=== PATIENT | female | born 1965 | race Caucasian/White ===

== ENCOUNTER 2016-05-11 22:33 | Emergency (ER) | payer BC ==
[~2016-05-11 22:33] MED LIST: KLONOPIN0.5 M1 PO
[2016-05-12 00:17] LABS: BASO % 0.7 % (0-2); BASO ABSOLUTE COUNT 0.1 tho/cmm (0.0-0.2); EOS % 5.7 % (0-7); EOSINOPHIL ABSOLUTE COUNT 0.5 tho/cmm (0.0-0.7); HCT-HEMATOCRIT 41.7 % (34.0-49.0); HGB-HEMOGLOBIN 13.9 gm/dl (12.0-15.5); IMMATURE GRANULOCYTES ABSOLUTE 0.03 tho/cmm (0-0.03); IMMATURE GRANULOCYTES PERCENT 0.3 % (0-0.3); LYMPH % 30.6 % (20-45); LYMPH ABSOLUTE COUNT 2.8 tho/cmm (0.8-4.5); MCH (MEAN CORPUSCULAR HGB) 29.7 pg (28.0-32.0); MCHC MEAN CORPUSCULAR HGB CONC 33.3 % (32.0-36.0); MCV (MEAN CELL VOLUME) 89.1 fl (82.0-96.0); MONO % 10.8 % (0-12); NEUTROPHIL ABSOLUTE COUNT 4.7 tho/cmm (1.6-8.0); NEUTROPHIL-AUTOMATED 4.7 tho/cmm (1.6-8.0); NEUTROPHILS % 51.9 % (40-80); PLATELET COUNT 241 tho/cmm (150-450); RED BLOOD COUNT 4.68 mil/cmm (4.00-5.20); RED CELL DISTRIBUTION WIDTH 12.7 % (12.4-16.4)
[2016-05-12 00:22] LABS: INR 0.9 INR (0.9-1.1); PROTHROMBIN TIME 10.9 SECONDS (9.0-13.6)
[2016-05-12 00:36] LABS: PREGNANCY-SERUM NEGATIVE (NEGATIVE)
[2016-05-12 00:40] LABS: ESR-ERYTHROCYTE SED RATE 1 mm/hr (0-20)
[2016-05-12 00:47] LABS: BLOOD UREA NITROGEN 17 mg/dl (6-24); CALCIUM 9.2 mg/dl (8.5-10.5); CARBON DIOXIDE-VENOUS 27 mmol/L (22-32); CHLORIDE 107 mmol/l (96-110); GLUCOSE 103 mg/dL (70-110); SODIUM 140 mmol/L (135-145); eGFR VALUE FOR BLACK >90 mL/Min
[2016-05-12 00:48] LABS: ANION GAP 10 mmol/L (0-20); C-REACTIVE PROTEIN <0.3 mg/dl (0-0.9); MAGNESIUM 2.4 mg/dl (1.3-2.6); POTASSIUM 4.2 mmol/L (3.7-5.1)
[2016-05-12 00:51] LABS: TSH-THYROID STIMULATING HORM. 2.58 uIU/ml (0.40-3.80)
[2016-05-12 01:53] LABS: URINE BILIRUBIN NEGATIVE (NEG); URINE BLOOD MODERATE (NEG); URINE GLUCOSE (UA) NEGATIVE (NEG); URINE KETONE NEGATIVE (NEG); URINE LEUKOCYTE ESTERASE NEGATIVE (NEG); URINE NITRITE NEGATIVE (NEG); URINE PROTEIN NEGATIVE (NEG)
[2016-05-12 02:00] LABS: URINE APPEARANCE CLEAR; URINE COLOR YELLOW
[2016-05-12 02:05] LABS: URINE BACTERIA 1+; URINE EPITHELIAL CELLS RARE /[HPF] (0-10); URINE RBC RARE /[HPF] (0-5); URINE WBC RARE /[HPF] (0-5)
== END 2016-05-12 05:09 ==
LOC: EDMED 22:33
PROVIDERS: Emergency Medicine
DX: H53.2 Diplopia (principal); Z88.1 Allergy status to other antibiotic agents
CPT/HCPCS: A9577; J2405; Q9967